=== PATIENT | male | born 1995 | race Caucasian/White ===

== ENCOUNTER 2021-05-13 23:04 | Inpatient (IN) | payer OTHER ==
[~2021-05-13] VITALS: Ht 172.7 cm; Wt 81.2 kg
[2021-05-13 23:39] LABS: GLUCOSE,POINT OF CARE 435 MG/DL (70-110)
[2021-05-13 23:39] LABS: EOSINOPHILS % (AUTO) 0 % (1.0-6.0); HEMATOCRIT 44.6 % (41-53); HEMOGLOBIN 15.2 g/dL (13.5-17.5); LYMPHOCYTES # (AUTO) 1.6 K/uL (1.0-4.8); LYMPHOCYTES % (AUTO) 12.3 % (22.0-44.0); MEAN CORPUSCULAR HEMOGLOBIN 29.7 pg (26.0-34.0); MEAN CORPUSCULAR HGB CONC 34.2 G/dL (31.0-37.0); MEAN CORPUSCULAR VOLUME 87 fL (80-100); MONOCYTES # (AUTO) 0.5 K/uL (0.1-1.0); MONOCYTES % (AUTO) 4.1 % (2.0-9.0); NEUTROPHILS # (AUTO) 10.6 K/uL (1.8-7.7); NEUTROPHILS % (AUTO) 82.6 % (40.0-70.0); PLATELET COUNT (AUTO) 355 K/uL (150-450); RED BLOOD CELL COUNT(AUTO) 5.13 MIL/uL (4.50-5.90)
[2021-05-13] MEDS ORDERED: INSU100V37 SQ (23:43)
[2021-05-13] MEDS ORDERED: INSULIN REGULAR, HUMAN 100 UNITS/ML IVP ONE (23:45)
[2021-05-13] MEDS ORDERED: SODIUM CHLORIDE 0.9% 1,000 ML IV ONE (23:45)
[2021-05-13 23:57] LABS: ALANINE AMINOTRANSFERASE 62 U/L (12-78); ALBUMIN 4.9 g/dL (3.4-5.0); ALKALINE PHOSPHATASE 203 U/L (46-116); ANION GAP 15 mmol/L (8-16); ASPARTATE AMINOTRANSFERASE 41 U/L (15-37); BILIRUBIN,TOTAL 0.2 mg/dL (0.1-1.0); CALCIUM, TOTAL 8.7 mg/dL (8.8-10.5); CARBON DIOXIDE 23 mmol/L (22-29); CHLORIDE 99 mmol/L (98-107); GLOMERULAR FILTR. RATE CALC > 60 mL/min (>60); POTASSIUM 5.3 mmol/L (3.5-5.1); SODIUM SERUM 137 mmol/L (136-145); TOTAL PROTEIN, SERUM 8.4 g/dL (6.4-8.2); UREA NITROGEN, BLOOD 9 mg/dL (7-18)
[2021-05-14] VITALS (13 sets, daily range): BP systolic 103–146; BP diastolic 62–86
[2021-05-14 00:05] LABS: COVID AG,FIA SOURCE NASOPHARYNGEAL
[2021-05-14 00:14] LABS: GLUCOSE,RANDOM 423 mg/dL (70-110)
[2021-05-14 00:15] LABS: LACTIC ACID 2.5 mmol/L (0.4-2.0)
[2021-05-14 01:18] LABS: GLUCOSE,POINT OF CARE 176 MG/DL (70-110)
[2021-05-14 02:17] LABS: LACTIC ACID 1.9 mmol/L (0.4-2.0)
[2021-05-14 02:20] LABS: ANION GAP 13 mmol/L (8-16); CALCIUM, TOTAL 8.9 mg/dL (8.8-10.5); CARBON DIOXIDE 24 mmol/L (22-29); CHLORIDE 105 mmol/L (98-107); CREATININE 0.93 mg/dL (0.60-1.30); GLOMERULAR FILTR. RATE CALC > 60 mL/min (>60); GLUCOSE,RANDOM 216 mg/dL (70-110); POTASSIUM 4.5 mmol/L (3.5-5.1); SODIUM SERUM 142 mmol/L (136-145); UREA NITROGEN, BLOOD 11 mg/dL (7-18)
[2021-05-14 04:47] LABS: GLUCOMETER DEV NAME(LOC) BV2S.; GLUCOSE,POINT OF CARE 267 MG/DL (70-110)
[2021-05-14] MEDS ORDERED: INFLUENZA VIRUS VACCINE QVS 2021-22 (6MO+)/PF 60 MCG/0.5 ML SYRINGE IM. ONE (05:30)
[2021-05-14] MEDS ORDERED: DOCUSATE SODIUM 100 MG CAPSULE PO PRN (06:30)
[2021-05-14] MEDS ORDERED: PETROLATUM,WHITE 28 GM JELLY TP PRN (06:30)
[2021-05-14] MEDS ORDERED: BENZOCAINE/MENTHOL LOZENGE PO PRN (06:30)
[2021-05-14] MEDS ORDERED: DEXTROSE 50%-WATER 25 GM/50 ML SYRINGE IVP PRN (06:30)
[2021-05-14] MEDS ORDERED: MAG HYDROX/AL HYDROX/SIMETH ES 30 ML SUSPENSION UDCUP PO PRN (06:30)
[2021-05-14] MEDS ORDERED: LOPERAMIDE HCL 2 MG CAPSULE PO PRN (06:30)
[2021-05-14] MEDS ORDERED: ACETAMINOPHEN 325 MG TABLET PO PRN (06:30)
[2021-05-14] MEDS ORDERED: IBUPROFEN 600 MG TABLET PO PRN (06:30)
[2021-05-14] MEDS ORDERED: MAGNESIUM HYDROXIDE SUSPENSION 30 ML UDCUP PO PRN (06:30)
[2021-05-14] MEDS ORDERED: CloNIDine HCL 0.1 MG TABLET PO PRN (06:30)
[2021-05-14] MEDS ORDERED: OMEPRAZOLE 20 MG CAPSULE PO PRN (06:30)
[2021-05-14] MEDS ORDERED: ALBUTEROL SULFATE HFA 90 MCG/PUFF 8 GM INHALER IH PRN (06:30)
[2021-05-14] MEDS ORDERED: BACITRACIN 28 GM OINTMENT TP PRN (06:30)
[2021-05-14] MEDS: INSULIN LISPRO 100 UNITS/ML SQ PRN ×4 (06:49→20:53)
[2021-05-14] MEDS: LORazepam 2 MG TABLET PO PRN ×2 (08:24→14:54)
[2021-05-14] MEDS: HALOPERIDOL 5 MG TABLET PO PRN ×2 (08:46→14:54)
[2021-05-14 11:35] LABS: GLUCOMETER DEV NAME(LOC) BV2S.; GLUCOSE,POINT OF CARE 212 MG/DL (70-110)
[2021-05-14 19:47] LABS: GLUCOMETER DEV NAME(LOC) BV2S.; GLUCOSE,POINT OF CARE 187 MG/DL (70-110)
[2021-05-14] MEDS: INSULIN GLARGINE,HUM.REC.ANLOG 100 UNITS/ML SQ SCH (20:53)
[2021-05-14] MEDS: ZOLPIDEM TARTRATE 10 MG TABLET PO PRN (20:56)
[2021-05-14 21:05] LABS: GLUCOMETER DEV NAME(LOC) BV2S.; GLUCOSE,POINT OF CARE 124 MG/DL (70-110)
[2021-05-15 01:37] VITALS: BP 125/68
[2021-05-15 02:59] VITALS: BP 125/68
[2021-05-15 06:31] VITALS: BP 125/78
[2021-05-15] MEDS: INSULIN LISPRO 100 UNITS/ML SQ PRN ×3 (06:45→20:41)
[2021-05-15 06:46] LABS: GLUCOMETER DEV NAME(LOC) BV2S.; GLUCOSE,POINT OF CARE 221 MG/DL (70-110)
[2021-05-15] MEDS: LORazepam 2 MG TABLET PO PRN ×2 (08:08→14:50)
[2021-05-15 08:47] VITALS: BP 120/71
[2021-05-15 09:25] LABS: CHOL/HDL RATIO 3.2 (4.2-7.3)
[2021-05-15] MEDS: HALOPERIDOL 5 MG TABLET PO PRN (09:42)
[2021-05-15 12:13] LABS: GLUCOMETER DEV NAME(LOC) BV2S.; GLUCOSE,POINT OF CARE 108 MG/DL (70-110)
[2021-05-15 16:27] VITALS: BP 120/72
[2021-05-15 16:42] LABS: GLUCOMETER DEV NAME(LOC) BV2S.; GLUCOSE,POINT OF CARE 365 MG/DL (70-110)
[2021-05-15] MEDS: ZOLPIDEM TARTRATE 10 MG TABLET PO PRN (20:38)
[2021-05-15] MEDS: INSULIN GLARGINE,HUM.REC.ANLOG 100 UNITS/ML SQ SCH (20:41)
[2021-05-15 23:28] LABS: GLUCOMETER DEV NAME(LOC) BV2S.; GLUCOSE,POINT OF CARE 285 MG/DL (70-110)
[2021-05-16] MEDS: LORazepam 2 MG TABLET PO PRN ×4 (00:40→18:32)
[2021-05-16 03:07] VITALS: BP 126/81
[2021-05-16] MEDS: INSULIN LISPRO 100 UNITS/ML SQ PRN ×4 (06:28→21:18)
[2021-05-16 06:32] LABS: GLUCOMETER DEV NAME(LOC) BV2S.; GLUCOSE,POINT OF CARE 164 MG/DL (70-110)
[2021-05-16 08:30] VITALS: BP 144/84
[2021-05-16 11:25] LABS: GLUCOMETER DEV NAME(LOC) BV2S.; GLUCOSE,POINT OF CARE 261 MG/DL (70-110)
[2021-05-16 15:23] VITALS: BP 132/89
[2021-05-16 16:11] VITALS: BP 132/89
[2021-05-16] MEDS: HALOPERIDOL 5 MG TABLET PO PRN (16:17)
[2021-05-16 16:31] LABS: GLUCOMETER DEV NAME(LOC) BV2S.; GLUCOSE,POINT OF CARE 280 MG/DL (70-110)
[2021-05-16] MEDS ORDERED: QUEtiapine FUMARATE 300 MG TABLET PO SCH (21:00)
[2021-05-16] MEDS: OXcarbazepine 300 MG TABLET PO SCH (21:07)
[2021-05-16] MEDS: INSULIN GLARGINE,HUM.REC.ANLOG 100 UNITS/ML SQ SCH (21:18)
[2021-05-16 21:24] LABS: GLUCOMETER DEV NAME(LOC) BV2S.; GLUCOSE,POINT OF CARE 344 MG/DL (70-110)
[2021-05-17 06:03] VITALS: BP 132/84
[2021-05-17] MEDS: INSULIN LISPRO 100 UNITS/ML SQ PRN (06:20)
[2021-05-17 06:27] LABS: GLUCOMETER DEV NAME(LOC) BV2S.; GLUCOSE,POINT OF CARE 213 MG/DL (70-110)
[2021-05-17] MEDS ORDERED: QUET300T2 PO (07:58)
[2021-05-17] MEDS ORDERED: INSLAN SQ (07:59)
[2021-05-17] MEDS ORDERED: OXCA300T57 PO (07:59)
[2021-05-17 08:15] VITALS: BP 107/66
[2021-05-17] MEDS: OXcarbazepine 300 MG TABLET PO SCH (09:07)
== END 2021-05-17 11:29 | disposition home or self-care (01) | DRG 885 ==
LOC: EMS 23:04 → B2S 05-14 02:00
PROVIDERS: ADMIT Psychiatry & Neurology Psychiatry; ATTEND Psychiatry & Neurology Psychiatry
DX: F25.9 Schizoaffective disorder, unspecified (principal); E10.65 Type 1 diabetes mellitus with hyperglycemia; E87.2 Acidosis; D72.829 Elevated white blood cell count, unspecified; F10.129 Alcohol abuse with intoxication, unspecified; F32.9 Major depressive disorder, single episode, unspecified; Z20.822 Contact with and (suspected) exposure to COVID-19; F41.9 Anxiety disorder, unspecified; G47.00 Insomnia, unspecified; K59.00 Constipation, unspecified; S61.511A Laceration without foreign body of right wrist, initial encounter; S61.512A Laceration without foreign body of left wrist, initial encounter; X78.9XXA Intentional self-harm by unspecified sharp object, initial encounter; Y92.89 Other specified places as the place of occurrence of the external cause; Z79.4 Long term (current) use of insulin; Z23 Encounter for immunization
CPT/HCPCS: 80048; 80053; 80061; 82962; 83605; 85025; 87081; 90686; 99285; G0480; J1815; J7030

== ENCOUNTER 2022-07-26 13:27 | Inpatient (IN) | payer MEDICAID, OTHER ==
[~2022-07-26] VITALS: Ht 167.6 cm; Wt 91.7 kg
[~2022-07-26 13:27] MED LIST: INSLAN SQ; OXCA300T57 PO; QUET300T2 PO
[2022-07-26] MEDS ORDERED: PERTUSS(ACELL),DIPH,TET VAC/PF 0.5 ML SYRINGE IM. ONE (15:15)
[2022-07-26 15:57] LABS: BASOPHILS % (AUTO) 0.5 % (0.0-2.0); EOSINOPHILS % (AUTO) 1.3 % (1.0-6.0); HEMATOCRIT 42.2 % (41-53); HEMOGLOBIN 14.1 g/dL (13.5-17.5); LYMPHOCYTES # (AUTO) 1.7 K/uL (1.0-4.8); MEAN CORPUSCULAR HEMOGLOBIN 29.1 pg (26.0-34.0); MEAN CORPUSCULAR HGB CONC 33.4 G/dL (31.0-37.0); MEAN CORPUSCULAR VOLUME 87 fL (80-100); NEUTROPHILS # (AUTO) 9.2 K/uL (1.8-7.7); NEUTROPHILS % (AUTO) 76.2 % (40.0-70.0); PLATELET COUNT (AUTO) 316 K/uL (150-450); RED BLOOD CELL COUNT(AUTO) 4.85 MIL/uL (4.50-5.90); RED CELL DISTRIBUTION WIDTH 13.8 % (11.5-14.5)
[2022-07-26 15:57] LABS: COVID AG,FIA SOURCE NASOPHARYNGEAL
[2022-07-26 16:09] LABS: ANION GAP 10 mmol/L (8-16); CALCIUM, TOTAL 9.5 mg/dL (8.8-10.5); CARBON DIOXIDE 27 mmol/L (22-29); CHLORIDE 105 mmol/L (98-107); CREATININE 1.01 mg/dL (0.60-1.30); GLOMERULAR FILTR. RATE CALC > 60 mL/min (>60); GLUCOSE,RANDOM 59 mg/dL (70-110); POTASSIUM 3.6 mmol/L (3.5-5.1); SODIUM SERUM 142 mmol/L (136-145); UREA NITROGEN, BLOOD 17 mg/dL (7-18)
[2022-07-26 16:16] LABS: ALANINE AMINOTRANSFERASE 39 U/L (12-78); ALBUMIN 4.2 g/dL (3.4-5.0); ALKALINE PHOSPHATASE 99 U/L (46-116); ASPARTATE AMINOTRANSFERASE 31 U/L (15-37); BILIRUBIN,TOTAL 0.4 mg/dL (0.1-1.0)
[2022-07-26] MEDS ORDERED: ACETAMINOPHEN 500 MG TABLET PO ONE (19:30)
[2022-07-26 22:20] LABS: GLUCOMETER DEV NAME(LOC) 3E.C; GLUCOSE,POINT OF CARE 182 MG/DL (70-110)
[2022-07-26 22:40] VITALS: BP 150/93
[2022-07-26 22:56] VITALS: BP 150/93
[2022-07-27] MEDS ORDERED: MAG HYDROX/AL HYDROX/SIMETH ES 30 ML SUSPENSION UDCUP PO PRN (07:15)
[2022-07-27] MEDS ORDERED: DOCUSATE SODIUM 100 MG CAPSULE PO PRN (07:15)
[2022-07-27] MEDS ORDERED: CloNIDine HCL 0.1 MG TABLET PO PRN (07:15)
[2022-07-27] MEDS ORDERED: ONDANSETRON HCL 4 MG TABLET PO PRN (07:15)
[2022-07-27] MEDS ORDERED: PETROLATUM,WHITE 28 GM JELLY TP PRN (07:15)
[2022-07-27] MEDS ORDERED: LOPERAMIDE HCL 2 MG CAPSULE PO PRN (07:15)
[2022-07-27] MEDS ORDERED: BENZOCAINE/MENTHOL LOZENGE PO PRN (07:15)
[2022-07-27] MEDS ORDERED: DEXTROSE 50%-WATER 25 GM/50 ML SYRINGE IVP PRN (07:15)
[2022-07-27] MEDS ORDERED: BACITRACIN 28 GM OINTMENT TP PRN (07:15)
[2022-07-27] MEDS ORDERED: OMEPRAZOLE 20 MG CAPSULE PO PRN (07:15)
[2022-07-27] MEDS ORDERED: MAGNESIUM HYDROXIDE SUSPENSION 30 ML UDCUP PO PRN (07:15)
[2022-07-27 08:38] VITALS: BP 154/93
[2022-07-27] MEDS: LISINOPRIL 10 MG TABLET PO SCH (09:27)
[2022-07-27] MEDS: LORazepam 2 MG TABLET PO PRN (10:37)
[2022-07-27] MEDS: IBUPROFEN 600 MG TABLET PO PRN (10:37)
[2022-07-27 10:38] VITALS: BP 152/85
[2022-07-27 11:28] LABS: APPEARANCE,URINE CLEAR (CLEAR); BILIRUBIN,URINE NEGATIVE (NEGATIVE); GLUCOSE, URINE (UA) NEGATIVE (NEGATIVE); LEUKOCYTE ESTERASE ,URINE NEGATIVE (NEGATIVE); NITRATE,URINE NEGATIVE (NEGATIVE); OCCULT BLOOD,URINE NEGATIVE (NEGATIVE); PH,URINE 5.5 (5.0-8.0); PROTEIN,URINE TRACE mg/dL (NEGATIVE); UROBILINOGEN,URINE <=1.0 mg/dL (<=1.0)
[2022-07-27 11:37] VITALS: BP 141/85
[2022-07-27 11:51] LABS: GLUCOMETER DEV NAME(LOC) 3E.C; GLUCOSE,POINT OF CARE 234 MG/DL (70-110)
[2022-07-27] MEDS: INSULIN LISPRO 100 UNITS/ML SQ PRN ×2 (11:57→17:26)
[2022-07-27 11:58] LABS: AMPHET/METH SCREEN,URINE NEGATIVE (NEGATIVE); BARBITURATE SCREEN, URINE NEGATIVE (NEGATIVE); BENZODIAZEPINES SCREEN,URINE NEGATIVE (NEGATIVE); CANNABINOID SCREEN,URINE NEGATIVE (NEGATIVE); COCAINE SCREEN,URINE NEGATIVE (NEGATIVE); METHADONE SCREEN, URINE NEGATIVE (NEGATIVE); OPIATE SCREEN,URINE NEGATIVE (NEGATIVE)
[2022-07-27 12:02] LABS: PHENCYCLIDINE SCREEN,URINE NEGATIVE (NEGATIVE)
[2022-07-27 16:36] LABS: GLUCOMETER DEV NAME(LOC) 3E.C; GLUCOSE,POINT OF CARE 338 MG/DL (70-110)
[2022-07-27 16:57] VITALS: BP 137/65
[2022-07-27 20:41] LABS: GLUCOMETER DEV NAME(LOC) 3E.C; GLUCOSE,POINT OF CARE 129 MG/DL (70-110)
[2022-07-27] MEDS: ZOLPIDEM TARTRATE 10 MG TABLET PO PRN (21:08)
[2022-07-27] MEDS: INSULIN GLARGINE,HUM.REC.ANLOG 100 UNITS/ML SQ SCH (21:10)
[2022-07-28 06:41] LABS: GLUCOMETER DEV NAME(LOC) 3E.C; GLUCOSE,POINT OF CARE 90 MG/DL (70-110)
[2022-07-28 08:15] VITALS: BP 131/62
[2022-07-28] MEDS: LISINOPRIL 10 MG TABLET PO SCH (08:26)
[2022-07-28 09:01] VITALS: BP 134/65
[2022-07-28] MEDS: IBUPROFEN 600 MG TABLET PO PRN ×2 (09:01→15:40)
[2022-07-28 09:41] LABS: GLUCOMETER DEV NAME(LOC) 3E.C; GLUCOSE,POINT OF CARE 304 MG/DL (70-110)
[2022-07-28] MEDS: INSULIN LISPRO 100 UNITS/ML SQ PRN ×3 (12:20→21:02)
[2022-07-28 15:40] VITALS: BP 129/65
[2022-07-28] MEDS: DIVALPROEX SODIUM 500 MG DR TABLET PO SCH (16:37)
[2022-07-28] MEDS: LITHIUM CARBONATE 300 MG CAPSULE PO SCH (16:37)
[2022-07-28] MEDS: RisperiDONE 3 MG TABLET PO SCH (16:37)
[2022-07-28 17:16] LABS: GLUCOMETER DEV NAME(LOC) 3E.C; GLUCOSE,POINT OF CARE 350 MG/DL (70-110)
[2022-07-28 17:16] LABS: GLUCOMETER DEV NAME(LOC) 3E.C; GLUCOSE,POINT OF CARE 341 MG/DL (70-110)
[2022-07-28 17:52] VITALS: BP 130/74
[2022-07-28 20:31] LABS: GLUCOMETER DEV NAME(LOC) 3E.C; GLUCOSE,POINT OF CARE 321 MG/DL (70-110)
[2022-07-28] MEDS: INSULIN GLARGINE,HUM.REC.ANLOG 100 UNITS/ML SQ SCH (21:01)
[2022-07-29 06:30] VITALS: BP 112/66
[2022-07-29] MEDS: IBUPROFEN 600 MG TABLET PO PRN (06:30)
[2022-07-29 06:41] LABS: GLUCOMETER DEV NAME(LOC) 3E.C; GLUCOSE,POINT OF CARE 282 MG/DL (70-110)
[2022-07-29] MEDS: INSULIN LISPRO 100 UNITS/ML SQ PRN ×4 (07:05→21:09)
[2022-07-29] MEDS: RisperiDONE 3 MG TABLET PO SCH ×2 (08:51→16:39)
[2022-07-29] MEDS: LITHIUM CARBONATE 300 MG CAPSULE PO SCH ×2 (08:51→16:40)
[2022-07-29] MEDS: LISINOPRIL 10 MG TABLET PO SCH (08:51)
[2022-07-29] MEDS: DIVALPROEX SODIUM 500 MG DR TABLET PO SCH ×2 (08:52→16:39)
[2022-07-29 09:00] VITALS: BP 116/70
[2022-07-29 12:16] LABS: GLUCOMETER DEV NAME(LOC) 3E.C; GLUCOSE,POINT OF CARE 209 MG/DL (70-110)
[2022-07-29 16:17] VITALS: BP 117/56
[2022-07-29 16:51] LABS: GLUCOMETER DEV NAME(LOC) 3E.C; GLUCOSE,POINT OF CARE 326 MG/DL (70-110)
[2022-07-29 20:36] LABS: GLUCOMETER DEV NAME(LOC) 3E.C; GLUCOSE,POINT OF CARE 296 MG/DL (70-110)
[2022-07-29] MEDS: LORazepam 2 MG TABLET PO PRN (21:08)
[2022-07-29] MEDS: INSULIN GLARGINE,HUM.REC.ANLOG 100 UNITS/ML SQ SCH (21:18)
[2022-07-29] MEDS: ZOLPIDEM TARTRATE 10 MG TABLET PO PRN (22:24)
[2022-07-30 08:00] VITALS: BP 122/58
[2022-07-30] MEDS: RisperiDONE 3 MG TABLET PO SCH ×2 (08:28→16:23)
[2022-07-30] MEDS: DIVALPROEX SODIUM 500 MG DR TABLET PO SCH ×2 (08:28→16:23)
[2022-07-30] MEDS: LITHIUM CARBONATE 300 MG CAPSULE PO SCH ×2 (08:28→16:23)
[2022-07-30] MEDS: LISINOPRIL 10 MG TABLET PO SCH (08:28)
[2022-07-30 11:06] LABS: GLUCOMETER DEV NAME(LOC) 3E.C; GLUCOSE,POINT OF CARE 132 MG/DL (70-110)
[2022-07-30 11:06] LABS: GLUCOMETER DEV NAME(LOC) 3E.C; GLUCOSE,POINT OF CARE 387 MG/DL (70-110)
[2022-07-30] MEDS: INSULIN LISPRO 100 UNITS/ML SQ PRN ×3 (11:58→21:05)
[2022-07-30 16:15] VITALS: BP 132/73
[2022-07-30 16:35] LABS: GLUCOMETER DEV NAME(LOC) 3E.C; GLUCOSE,POINT OF CARE 207 MG/DL (70-110)
[2022-07-30 20:31] LABS: GLUCOMETER DEV NAME(LOC) 3E.C; GLUCOSE,POINT OF CARE 202 MG/DL (70-110)
[2022-07-30] MEDS: INSULIN GLARGINE,HUM.REC.ANLOG 100 UNITS/ML SQ SCH (21:04)
[2022-07-31] MEDS: IBUPROFEN 600 MG TABLET PO PRN ×2 (04:15→13:56)
[2022-07-31 05:36] LABS: GLUCOMETER DEV NAME(LOC) 3E.C; GLUCOSE,POINT OF CARE 127 MG/DL (70-110)
[2022-07-31 08:26] VITALS: BP 135/73
[2022-07-31] MEDS: LISINOPRIL 10 MG TABLET PO SCH (08:33)
[2022-07-31] MEDS: DIVALPROEX SODIUM 500 MG DR TABLET PO SCH ×2 (08:33→16:11)
[2022-07-31] MEDS: LITHIUM CARBONATE 300 MG CAPSULE PO SCH ×2 (08:34→16:11)
[2022-07-31] MEDS: RisperiDONE 3 MG TABLET PO SCH ×2 (08:34→16:11)
[2022-07-31 11:51] LABS: GLUCOMETER DEV NAME(LOC) 3E.C; GLUCOSE,POINT OF CARE 454 MG/DL (70-110)
[2022-07-31] MEDS ORDERED: DEXTROSE 50%-WATER 25 GM/50 ML SYRINGE IVP PRN (12:00)
[2022-07-31] MEDS ORDERED: INSULIN LISPRO 100 UNITS/ML SQ ONE (12:00)
[2022-07-31 13:57] VITALS: BP 132/73
[2022-07-31 14:59] VITALS: BP 115/70
[2022-07-31 16:18] VITALS: BP 118/77
[2022-07-31 17:41] LABS: GLUCOMETER DEV NAME(LOC) 3E.C; GLUCOSE,POINT OF CARE 140 MG/DL (70-110)
[2022-07-31] MEDS: INSULIN LISPRO 100 UNITS/ML SQ PRN ×2 (17:41→20:17)
[2022-07-31] MEDS: INSULIN GLARGINE,HUM.REC.ANLOG 100 UNITS/ML SQ SCH (20:16)
[2022-07-31 20:22] LABS: GLUCOMETER DEV NAME(LOC) 3E.C; GLUCOSE,POINT OF CARE 140 MG/DL (70-110)
[2022-08-01 02:32] VITALS: BP 122/80
[2022-08-01] MEDS: IBUPROFEN 600 MG TABLET PO PRN (02:32)
[2022-08-01 02:55] LABS: COVID AG,FIA SOURCE NASAL SWAB
[2022-08-01 05:51] LABS: GLUCOMETER DEV NAME(LOC) 3E.C; GLUCOSE,POINT OF CARE 204 MG/DL (70-110)
[2022-08-01] MEDS: INSULIN LISPRO 100 UNITS/ML SQ PRN ×5 (06:33→21:10)
[2022-08-01 08:00] VITALS: BP 123/62
[2022-08-01] MEDS: DIVALPROEX SODIUM 500 MG DR TABLET PO SCH ×2 (08:23→16:37)
[2022-08-01] MEDS: LITHIUM CARBONATE 300 MG CAPSULE PO SCH ×2 (08:23→16:37)
[2022-08-01] MEDS: LISINOPRIL 10 MG TABLET PO SCH (08:24)
[2022-08-01] MEDS: RisperiDONE 3 MG TABLET PO SCH ×2 (08:24→16:37)
[2022-08-01 11:52] LABS: GLUCOMETER DEV NAME(LOC) 3E.C; GLUCOSE,POINT OF CARE 176 MG/DL (70-110)
[2022-08-01 16:00] VITALS: BP 140/81
[2022-08-01 16:51] LABS: GLUCOMETER DEV NAME(LOC) 3E.C; GLUCOSE,POINT OF CARE 251 MG/DL (70-110)
[2022-08-01 20:56] LABS: GLUCOMETER DEV NAME(LOC) 3E.C; GLUCOSE,POINT OF CARE 328 MG/DL (70-110)
[2022-08-01] MEDS: INSULIN GLARGINE,HUM.REC.ANLOG 100 UNITS/ML SQ SCH (21:08)
[2022-08-02 02:10] VITALS: BP 112/66
[2022-08-02] MEDS: IBUPROFEN 600 MG TABLET PO PRN (02:15)
[2022-08-02] MEDS: HALOPERIDOL 5 MG TABLET PO PRN (04:05)
[2022-08-02] MEDS: LORazepam 2 MG TABLET PO PRN (04:06)
[2022-08-02] MEDS: INSULIN LISPRO 100 UNITS/ML SQ PRN ×4 (06:32→20:24)
[2022-08-02 06:55] LABS: GLUCOMETER DEV NAME(LOC) 3E.C; GLUCOSE,POINT OF CARE 84 MG/DL (70-110)
[2022-08-02 09:08] LABS: LITHIUM 0.51 mmol/L (0.60-1.20)
[2022-08-02 10:18] VITALS: BP 127/81
[2022-08-02] MEDS: RisperiDONE 3 MG TABLET PO SCH ×2 (11:08→18:01)
[2022-08-02] MEDS: LITHIUM CARBONATE 300 MG CAPSULE PO SCH ×2 (11:08→18:01)
[2022-08-02] MEDS: DIVALPROEX SODIUM 500 MG DR TABLET PO SCH ×2 (11:08→18:01)
[2022-08-02] MEDS: LISINOPRIL 10 MG TABLET PO SCH (11:08)
[2022-08-02 13:06] LABS: GLUCOMETER DEV NAME(LOC) 3E.C; GLUCOSE,POINT OF CARE 461 MG/DL (70-110)
[2022-08-02] MEDS ORDERED: INSULIN LISPRO 100 UNITS/ML SQ ONE (13:30)
[2022-08-02 16:33] VITALS: BP 114/60
[2022-08-02 18:20] LABS: GLUCOMETER DEV NAME(LOC) 3E.C; GLUCOSE,POINT OF CARE 138 MG/DL (70-110)
[2022-08-02] MEDS: INSULIN GLARGINE,HUM.REC.ANLOG 100 UNITS/ML SQ SCH (20:23)
[2022-08-02 20:36] LABS: GLUCOMETER DEV NAME(LOC) 3E.C; GLUCOSE,POINT OF CARE 261 MG/DL (70-110)
[2022-08-03 06:12] VITALS: BP 129/86
[2022-08-03] MEDS: IBUPROFEN 600 MG TABLET PO PRN (06:12)
[2022-08-03] MEDS: LORazepam 2 MG TABLET PO PRN ×2 (06:12→09:10)
[2022-08-03 06:31] LABS: GLUCOMETER DEV NAME(LOC) 3E.C; GLUCOSE,POINT OF CARE 365 MG/DL (70-110)
[2022-08-03] MEDS: INSULIN LISPRO 100 UNITS/ML SQ PRN ×3 (06:33→21:29)
[2022-08-03 08:24] VITALS: BP 111/67
[2022-08-03] MEDS: DIVALPROEX SODIUM 500 MG DR TABLET PO SCH ×2 (09:10→17:10)
[2022-08-03] MEDS: LITHIUM CARBONATE 300 MG CAPSULE PO SCH ×2 (09:10→17:11)
[2022-08-03] MEDS: LISINOPRIL 10 MG TABLET PO SCH (09:10)
[2022-08-03] MEDS: HALOPERIDOL 5 MG TABLET PO PRN (09:10)
[2022-08-03] MEDS: RisperiDONE 3 MG TABLET PO SCH ×2 (09:10→17:11)
[2022-08-03 09:11] VITALS: BP 117/67
[2022-08-03] MEDS: ACETAMINOPHEN 325 MG TABLET PO PRN (09:11)
[2022-08-03 10:11] VITALS: BP 108/62
[2022-08-03 12:06] LABS: GLUCOMETER DEV NAME(LOC) 3E.C; GLUCOSE,POINT OF CARE 311 MG/DL (70-110)
[2022-08-03] MEDS ORDERED: INSULIN LISPRO 100 UNITS/ML SQ ONE (17:30)
[2022-08-03 17:31] LABS: GLUCOMETER DEV NAME(LOC) 3E.C; GLUCOSE,POINT OF CARE 530 MG/DL (70-110)
[2022-08-03 17:41] LABS: GLUCOMETER DEV NAME(LOC) 3E.C; GLUCOSE,POINT OF CARE 540 MG/DL (70-110)
[2022-08-03 18:30] VITALS: BP 108/56
[2022-08-03 18:38] VITALS: BP 128/69
[2022-08-03 18:51] LABS: GLUCOMETER DEV NAME(LOC) 3E.C; GLUCOSE,POINT OF CARE 554 MG/DL (70-110)
[2022-08-03 21:27] LABS: GLUCOMETER DEV NAME(LOC) 3E.C; GLUCOSE,POINT OF CARE 266 MG/DL (70-110)
[2022-08-03] MEDS: INSULIN GLARGINE,HUM.REC.ANLOG 100 UNITS/ML SQ SCH (21:28)
[2022-08-04] MEDS: INSULIN LISPRO 100 UNITS/ML SQ SCH ×3 (06:25→17:17)
[2022-08-04] MEDS: INSULIN LISPRO 100 UNITS/ML SQ PRN ×4 (06:27→21:02)
[2022-08-04 06:31] LABS: GLUCOMETER DEV NAME(LOC) 3E.C; GLUCOSE,POINT OF CARE 215 MG/DL (70-110)
[2022-08-04 08:18] VITALS: BP 99/61
[2022-08-04] MEDS: LITHIUM CARBONATE 300 MG CAPSULE PO SCH ×2 (09:26→17:16)
[2022-08-04] MEDS: DIVALPROEX SODIUM 500 MG DR TABLET PO SCH ×2 (09:26→17:16)
[2022-08-04] MEDS: LISINOPRIL 10 MG TABLET PO SCH (09:26)
[2022-08-04] MEDS: RisperiDONE 3 MG TABLET PO SCH ×2 (09:26→17:16)
[2022-08-04] MEDS: MULTIVITAMINS WITH MINERALS, THERAPEUTIC TABLET PO SCH (09:26)
[2022-08-04 10:56] LABS: GLUCOMETER DEV NAME(LOC) 3E.C; GLUCOSE,POINT OF CARE 269 MG/DL (70-110)
[2022-08-04] MEDS: ALBUTEROL SULFATE HFA 90 MCG/PUFF 8 GM INHALER IH PRN (11:48)
[2022-08-04 11:57] LABS: GLUCOMETER DEV NAME(LOC) 3E.C; GLUCOSE,POINT OF CARE 309 MG/DL (70-110)
[2022-08-04 16:07] VITALS: BP 127/64
[2022-08-04 17:10] LABS: GLUCOMETER DEV NAME(LOC) 3E.C; GLUCOSE,POINT OF CARE 206 MG/DL (70-110)
[2022-08-04 20:31] LABS: GLUCOMETER DEV NAME(LOC) 3E.C; GLUCOSE,POINT OF CARE 181 MG/DL (70-110)
[2022-08-04] MEDS: INSULIN GLARGINE,HUM.REC.ANLOG 100 UNITS/ML SQ SCH (20:59)
[2022-08-05] MEDS: ALBUTEROL SULFATE HFA 90 MCG/PUFF 8 GM INHALER IH PRN (04:40)
[2022-08-05 05:32] LABS: GLUCOMETER DEV NAME(LOC) 3E.C; GLUCOSE,POINT OF CARE 296 MG/DL (70-110)
[2022-08-05] MEDS: INSULIN LISPRO 100 UNITS/ML SQ SCH ×3 (06:58→16:42)
[2022-08-05] MEDS: INSULIN LISPRO 100 UNITS/ML SQ PRN ×4 (06:59→21:10)
[2022-08-05 08:14] VITALS: BP 100/62
[2022-08-05] MEDS: RisperiDONE 3 MG TABLET PO SCH ×2 (08:18→17:10)
[2022-08-05] MEDS: DIVALPROEX SODIUM 500 MG DR TABLET PO SCH ×2 (08:18→17:10)
[2022-08-05] MEDS: LITHIUM CARBONATE 300 MG CAPSULE PO SCH ×2 (08:18→17:10)
[2022-08-05] MEDS: MULTIVITAMINS WITH MINERALS, THERAPEUTIC TABLET PO SCH (08:19)
[2022-08-05] MEDS: LISINOPRIL 10 MG TABLET PO SCH (08:21)
[2022-08-05 11:21] LABS: GLUCOMETER DEV NAME(LOC) 3E.C; GLUCOSE,POINT OF CARE 230 MG/DL (70-110)
[2022-08-05] MEDS: IBUPROFEN 600 MG TABLET PO PRN (13:23)
[2022-08-05 16:05] VITALS: BP 118/60
[2022-08-05 16:56] LABS: GLUCOMETER DEV NAME(LOC) 3E.C; GLUCOSE,POINT OF CARE 581 MG/DL (70-110)
[2022-08-05 17:16] LABS: GLUCOMETER DEV NAME(LOC) 3E.C; GLUCOSE,POINT OF CARE 562 MG/DL (70-110)
[2022-08-05 17:36] LABS: GLUCOMETER DEV NAME(LOC) 3E.C; GLUCOSE,POINT OF CARE 584 MG/DL (70-110)
[2022-08-05 19:11] LABS: GLUCOMETER DEV NAME(LOC) 3E.C; GLUCOSE,POINT OF CARE 127 MG/DL (70-110)
[2022-08-05] MEDS: INSULIN GLARGINE,HUM.REC.ANLOG 100 UNITS/ML SQ SCH (21:00)
[2022-08-05] MEDS: LORazepam 2 MG TABLET PO PRN (21:09)
[2022-08-05] MEDS: HALOPERIDOL 5 MG TABLET PO PRN (21:09)
[2022-08-05 21:17] LABS: GLUCOMETER DEV NAME(LOC) 3E.C; GLUCOSE,POINT OF CARE 135 MG/DL (70-110)
[2022-08-06 06:11] LABS: GLUCOMETER DEV NAME(LOC) 3E.C; GLUCOSE,POINT OF CARE 288 MG/DL (70-110)
[2022-08-06] MEDS: INSULIN LISPRO 100 UNITS/ML SQ SCH ×3 (06:45→17:14)
[2022-08-06] MEDS: INSULIN LISPRO 100 UNITS/ML SQ PRN ×3 (06:46→20:09)
[2022-08-06] MEDS: DIVALPROEX SODIUM 500 MG DR TABLET PO SCH ×2 (08:05→16:21)
[2022-08-06] MEDS: MULTIVITAMINS WITH MINERALS, THERAPEUTIC TABLET PO SCH (08:05)
[2022-08-06] MEDS: RisperiDONE 3 MG TABLET PO SCH ×2 (08:05→16:21)
[2022-08-06] MEDS: LITHIUM CARBONATE 300 MG CAPSULE PO SCH ×2 (08:05→16:21)
[2022-08-06] MEDS: LISINOPRIL 10 MG TABLET PO SCH (08:05)
[2022-08-06 08:38] VITALS: BP 135/77
[2022-08-06 11:11] LABS: GLUCOMETER DEV NAME(LOC) 3E.C; GLUCOSE,POINT OF CARE 89 MG/DL (70-110)
[2022-08-06] MEDS: ACETAMINOPHEN 325 MG TABLET PO PRN (16:08)
[2022-08-06 16:09] VITALS: BP 150/83
[2022-08-06 16:16] LABS: GLUCOMETER DEV NAME(LOC) 3E.C; GLUCOSE,POINT OF CARE 365 MG/DL (70-110)
[2022-08-06 17:31] LABS: GLUCOMETER DEV NAME(LOC) 3E.C; GLUCOSE,POINT OF CARE 403 MG/DL (70-110)
[2022-08-06 19:01] LABS: GLUCOMETER DEV NAME(LOC) 3E.C; GLUCOSE,POINT OF CARE 455 MG/DL (70-110)
[2022-08-06] MEDS: INSULIN GLARGINE,HUM.REC.ANLOG 100 UNITS/ML SQ SCH (20:10)
[2022-08-06 20:17] LABS: GLUCOMETER DEV NAME(LOC) 3E.C; GLUCOSE,POINT OF CARE 334 MG/DL (70-110)
[2022-08-07 05:56] LABS: GLUCOMETER DEV NAME(LOC) 3E.C; GLUCOSE,POINT OF CARE 105 MG/DL (70-110)
[2022-08-07 06:34] VITALS: BP 142/76
[2022-08-07] MEDS: IBUPROFEN 600 MG TABLET PO PRN (06:34)
[2022-08-07] MEDS: INSULIN LISPRO 100 UNITS/ML SQ SCH ×3 (06:39→16:23)
[2022-08-07] MEDS: LITHIUM CARBONATE 300 MG CAPSULE PO SCH ×2 (08:02→16:02)
[2022-08-07] MEDS: MULTIVITAMINS WITH MINERALS, THERAPEUTIC TABLET PO SCH (08:02)
[2022-08-07] MEDS: LISINOPRIL 10 MG TABLET PO SCH (08:02)
[2022-08-07] MEDS: DIVALPROEX SODIUM 500 MG DR TABLET PO SCH ×2 (08:02→16:03)
[2022-08-07] MEDS: RisperiDONE 3 MG TABLET PO SCH ×2 (08:03→16:02)
[2022-08-07 08:13] VITALS: BP 132/71
[2022-08-07 11:11] LABS: GLUCOMETER DEV NAME(LOC) 3E.C; GLUCOSE,POINT OF CARE 151 MG/DL (70-110)
[2022-08-07] MEDS: ALBUTEROL SULFATE HFA 90 MCG/PUFF 8 GM INHALER IH PRN (11:26)
[2022-08-07] MEDS: HALOPERIDOL 5 MG TABLET PO PRN ×2 (11:27→20:58)
[2022-08-07 16:07] VITALS: BP 137/70
[2022-08-07 16:16] LABS: GLUCOMETER DEV NAME(LOC) 3E.C; GLUCOSE,POINT OF CARE 377 MG/DL (70-110)
[2022-08-07] MEDS: INSULIN LISPRO 100 UNITS/ML SQ PRN (16:23)
[2022-08-07] MEDS: INSULIN GLARGINE,HUM.REC.ANLOG 100 UNITS/ML SQ SCH (20:24)
[2022-08-07 20:25] LABS: GLUCOMETER DEV NAME(LOC) 3E.C; GLUCOSE,POINT OF CARE 91 MG/DL (70-110)
[2022-08-07] MEDS: LORazepam 2 MG TABLET PO PRN (20:58)
[2022-08-07] MEDS: ZOLPIDEM TARTRATE 10 MG TABLET PO PRN (22:15)
[2022-08-08 06:22] LABS: COVID AG,FIA SOURCE NASAL SWAB
[2022-08-08 06:26] LABS: GLUCOMETER DEV NAME(LOC) 3E.C; GLUCOSE,POINT OF CARE 312 MG/DL (70-110)
[2022-08-08] MEDS: INSULIN LISPRO 100 UNITS/ML SQ SCH ×3 (06:42→17:27)
[2022-08-08] MEDS: INSULIN LISPRO 100 UNITS/ML SQ PRN ×4 (06:43→20:49)
[2022-08-08 08:12] VITALS: BP 109/58
[2022-08-08] MEDS: LITHIUM CARBONATE 300 MG CAPSULE PO SCH ×2 (09:34→16:12)
[2022-08-08] MEDS: LISINOPRIL 10 MG TABLET PO SCH (09:34)
[2022-08-08] MEDS: MULTIVITAMINS WITH MINERALS, THERAPEUTIC TABLET PO SCH (09:34)
[2022-08-08] MEDS: RisperiDONE 3 MG TABLET PO SCH ×2 (09:34→16:12)
[2022-08-08] MEDS: DIVALPROEX SODIUM 500 MG DR TABLET PO SCH ×2 (09:34→16:12)
[2022-08-08] MEDS: HALOPERIDOL 5 MG TABLET PO PRN ×2 (11:10→16:12)
[2022-08-08 11:31] LABS: GLUCOMETER DEV NAME(LOC) 3E.C; GLUCOSE,POINT OF CARE 133 MG/DL (70-110)
[2022-08-08 16:06] VITALS: BP 114/61
[2022-08-08 17:36] LABS: GLUCOMETER DEV NAME(LOC) 3E.C; GLUCOSE,POINT OF CARE 445 MG/DL (70-110)
[2022-08-08] MEDS: INSULIN GLARGINE,HUM.REC.ANLOG 100 UNITS/ML SQ SCH (20:42)
[2022-08-08 20:46] LABS: GLUCOMETER DEV NAME(LOC) 3E.C; GLUCOSE,POINT OF CARE 179 MG/DL (70-110)
[2022-08-09 06:36] LABS: GLUCOMETER DEV NAME(LOC) 3E.C; GLUCOSE,POINT OF CARE 304 MG/DL (70-110)
[2022-08-09] MEDS: INSULIN LISPRO 100 UNITS/ML SQ SCH ×3 (06:53→17:00)
[2022-08-09] MEDS: INSULIN LISPRO 100 UNITS/ML SQ PRN ×2 (06:54→11:18)
[2022-08-09 07:11] LABS: FREE T4 (FREE THYROXINE) 0.93 ng/dL (0.76-1.46); THYROID STIMULATING HORMONE 3.78 uIU/mL (0.36-3.74)
[2022-08-09 08:12] VITALS: BP 109/61
[2022-08-09] MEDS: HALOPERIDOL 5 MG TABLET PO PRN (09:04)
[2022-08-09] MEDS: DIVALPROEX SODIUM 500 MG DR TABLET PO SCH ×2 (09:04→17:00)
[2022-08-09] MEDS: LITHIUM CARBONATE 300 MG CAPSULE PO SCH ×2 (09:04→17:00)
[2022-08-09] MEDS: RisperiDONE 3 MG TABLET PO SCH ×2 (09:04→17:00)
[2022-08-09] MEDS: MULTIVITAMINS WITH MINERALS, THERAPEUTIC TABLET PO SCH (09:05)
[2022-08-09] MEDS: LISINOPRIL 10 MG TABLET PO SCH (09:05)
[2022-08-09 11:26] LABS: GLUCOMETER DEV NAME(LOC) 3E.C; GLUCOSE,POINT OF CARE 130 MG/DL (70-110)
[2022-08-09] MEDS: ALBUTEROL SULFATE HFA 90 MCG/PUFF 8 GM INHALER IH PRN (11:27)
[2022-08-09] MEDS ORDERED: DIVA-112 PO (11:48)
[2022-08-09] MEDS ORDERED: LITH300C3 PO (11:48)
[2022-08-09] MEDS ORDERED: RISP3TAB63 PO (11:48)
[2022-08-09] MEDS ORDERED: INSLAN SQ (12:05)
[2022-08-09] MEDS ORDERED: INSU100V SQ (12:07)
[2022-08-09] MEDS ORDERED: LISI-661 PO (12:08)
== END 2022-08-09 14:30 | disposition home or self-care (01) | DRG 750 ==
LOC: EMS 14:03 → 3EC 18:11
PROVIDERS: ADMIT Psychiatry & Neurology Psychiatry; ATTEND Psychiatry & Neurology Psychiatry
DX: F25.9 Schizoaffective disorder, unspecified (principal); E11.9 Type 2 diabetes mellitus without complications; D72.829 Elevated white blood cell count, unspecified; F41.9 Anxiety disorder, unspecified; G47.00 Insomnia, unspecified; F32.A Depression, unspecified; I10 Essential (primary) hypertension; K59.00 Constipation, unspecified; X78.9XXA Intentional self-harm by unspecified sharp object, initial encounter; S61.412A Laceration without foreign body of left hand, initial encounter; S61.411A Laceration without foreign body of right hand, initial encounter; Z20.822 Contact with and (suspected) exposure to COVID-19; Z87.891 Personal history of nicotine dependence; Y93.89 Activity, other specified; Y92.89 Other specified places as the place of occurrence of the external cause; Y99.8 Other external cause status
CPT/HCPCS: 80053; 80164; 80178; 80307; 81003; 82962; 83036; 84439; 84443; 84481; 85025; 90715; 99285; G0480; J1815; J3535

== ENCOUNTER 2023-07-15 21:33 | Inpatient (IN) | payer MEDICAID ==
[~2023-07-15] VITALS: Ht 172.7 cm; Wt 90.7 kg
[~2023-07-15 21:33] MED LIST changes: +DIVA-112 PO; +INSU100C14 SQ; +LITH300C3 PO; -OXCA300T57 PO; -QUET300T2 PO; +RISP3TAB35 PO
[2023-07-15 22:04] LABS: BASOPHILS % (AUTO) 0.9 % (0.0-2.0); EOSINOPHILS % (AUTO) 1.9 % (1.0-6.0); HEMATOCRIT 42.5 % (41-53); HEMOGLOBIN 14.7 g/dL (13.5-17.5); LYMPHOCYTES # (AUTO) 2.5 K/uL (1.0-4.8); LYMPHOCYTES % (AUTO) 20.1 % (22.0-44.0); MEAN CORPUSCULAR HEMOGLOBIN 30.1 pg (26.0-34.0); MEAN CORPUSCULAR HGB CONC 34.7 G/dL (31.0-37.0); MEAN CORPUSCULAR VOLUME 87 fL (80-100); MONOCYTES # (AUTO) 1.1 K/uL (0.1-1.0); MONOCYTES % (AUTO) 8.6 % (2.0-9.0); NEUTROPHILS # (AUTO) 8.5 K/uL (1.8-7.7); NEUTROPHILS % (AUTO) 68.5 % (40.0-70.0); PLATELET COUNT (AUTO) 308 K/uL (150-450); RED CELL DISTRIBUTION WIDTH 12.9 % (11.5-14.5); WHITE BLOOD COUNT (AUTO) 12.5 K/uL (4.5-11.0)
[2023-07-15 22:23] LABS: ANION GAP 10 mmol/L (8-16); CALCIUM, TOTAL 9.2 mg/dL (8.8-10.5); CARBON DIOXIDE 24 mmol/L (22-29); CHLORIDE 106 mmol/L (98-107); CREATININE 0.85 mg/dL (0.60-1.30); GLOMERULAR FILTR. RATE CALC > 60 mL/min (>60); GLUCOSE,RANDOM 103 mg/dL (70-110); POTASSIUM 3.9 mmol/L (3.5-5.1); SODIUM SERUM 140 mmol/L (136-145); UREA NITROGEN, BLOOD 11 mg/dL (7-18)
[2023-07-15 22:29] LABS: ALANINE AMINOTRANSFERASE 37 U/L (12-78); ALKALINE PHOSPHATASE 157 U/L (46-116); ASPARTATE AMINOTRANSFERASE 20 U/L (15-37); BILIRUBIN,TOTAL 0.2 mg/dL (0.1-1.0)
[2023-07-15 22:34] LABS: ALCOHOL, BLOOD (SERUM) 87 mg/dL (0-10)
[2023-07-15 23:23] LABS: COVID AG,FIA SOURCE NASAL SWAB
[2023-07-15 23:33] LABS: ALCOHOL, URINE DRUG SCREEN POSITIVE (NEGATIVE); AMPHET/METH SCREEN,URINE NEGATIVE (NEGATIVE); BARBITURATE SCREEN, URINE NEGATIVE (NEGATIVE); BENZODIAZEPINES SCREEN,URINE NEGATIVE (NEGATIVE); CANNABINOID SCREEN,URINE POSITIVE (NEGATIVE); COCAINE SCREEN,URINE NEGATIVE (NEGATIVE); METHADONE SCREEN, URINE NEGATIVE (NEGATIVE); OPIATE SCREEN,URINE NEGATIVE (NEGATIVE); PHENCYCLIDINE SCREEN,URINE NEGATIVE (NEGATIVE)
[2023-07-15 23:41] LABS: SARS-COV2 (COVID) ANTIGEN,FIA Negative (Negative)
[2023-07-16 01:51] LABS: GLUCOMETER DEV NAME(LOC) BV3N.; GLUCOSE,POINT OF CARE 148 MG/DL (70-110)
[2023-07-16 01:59] VITALS: BP 115/70; PULSE 70; RESP 18; TEMP 97.8
[2023-07-16] MEDS: ZOLPIDEM TARTRATE 10 MG TABLET PO PRN (01:59)
[2023-07-16] MEDS: LORazepam 2 MG TABLET PO PRN (02:00)
[2023-07-16 02:02] VITALS: BP 115/70; PULSE 70; RESP 18; TEMP 98.7; O2SAT 100
[2023-07-16] MEDS ORDERED: DOCUSATE SODIUM 100 MG CAPSULE PO PRN (07:45)
[2023-07-16] MEDS ORDERED: MAGNESIUM HYDROXIDE SUSPENSION 30 ML UDCUP PO PRN (07:45)
[2023-07-16] MEDS ORDERED: PETROLATUM,WHITE 28 GM JELLY TP PRN (07:45)
[2023-07-16] MEDS ORDERED: ACETAMINOPHEN 325 MG TABLET PO PRN (07:45)
[2023-07-16] MEDS ORDERED: IBUPROFEN 600 MG TABLET PO PRN (07:45)
[2023-07-16] MEDS ORDERED: MAG HYDROX/ALUMINUM HYD/SIMETH ES 30 ML SUSPENSION UDCUP PO PRN (07:45)
[2023-07-16] MEDS ORDERED: CloNIDine HCL 0.1 MG TABLET PO PRN (07:45)
[2023-07-16] MEDS ORDERED: BENZOCAINE/MENTHOL LOZENGE PO PRN (07:45)
[2023-07-16] MEDS ORDERED: LOPERAMIDE HCL 2 MG CAPSULE PO PRN (07:45)
[2023-07-16] MEDS ORDERED: ALBUTEROL SULFATE HFA 90 MCG/PUFF 8 GM INHALER IH PRN (07:45)
[2023-07-16] MEDS ORDERED: ONDANSETRON HCL 4 MG TABLET PO PRN (07:45)
[2023-07-16] MEDS ORDERED: INSULIN LISPRO 100 UNITS/ML SQ PRN (07:45)
[2023-07-16] MEDS ORDERED: BACITRACIN 28 GM OINTMENT TP PRN (07:45)
[2023-07-16] MEDS ORDERED: OMEPRAZOLE 20 MG CAPSULE PO PRN (07:45)
[2023-07-16] MEDS ORDERED: GLUCAGON,HUMAN RECOMBINANT 1 MG VIAL IM PRN (07:45)
[2023-07-16 08:10] VITALS: BP 129/65; PULSE 83; RESP 18; TEMP 97.1
[2023-07-16 12:16] LABS: GLUCOMETER DEV NAME(LOC) BV3N.; GLUCOSE,POINT OF CARE > 600 MG/DL (70-110)
[2023-07-16] MEDS ORDERED: INSULIN LISPRO 100 UNITS/ML SQ ONE ×2 (12:30→13:30)
[2023-07-16 13:47] LABS: GLUCOMETER DEV NAME(LOC) BV3N.; GLUCOSE,POINT OF CARE 569 MG/DL (70-110)
[2023-07-16] MEDS: LITHIUM CARBONATE 300 MG CAPSULE PO SCH (16:09)
[2023-07-16] MEDS: RisperiDONE 2 MG TABLET PO SCH (16:09)
[2023-07-16] MEDS: DIVALPROEX SODIUM 500 MG ER TABLET PO SCH (16:09)
[2023-07-16 17:01] LABS: GLUCOMETER DEV NAME(LOC) BV3N.; GLUCOSE,POINT OF CARE 131 MG/DL (70-110)
[2023-07-16] MEDS: INSULIN LISPRO 100 UNITS/ML SQ PRN (17:07)
[2023-07-16] MEDS: INSULIN GLARGINE,HUM.REC.ANLOG 100 UNITS/ML SQ SCH (20:56)
[2023-07-16 21:01] LABS: GLUCOMETER DEV NAME(LOC) BV3N.; GLUCOSE,POINT OF CARE 261 MG/DL (70-110)
[2023-07-17] MEDS: ZOLPIDEM TARTRATE 10 MG TABLET PO PRN (01:25)
[2023-07-17] MEDS: LORazepam 2 MG TABLET PO PRN ×2 (01:26→08:29)
[2023-07-17 05:00] VITALS: RESP 18
[2023-07-17 06:46] LABS: GLUCOMETER DEV NAME(LOC) BV3N.; GLUCOSE,POINT OF CARE 282 MG/DL (70-110)
[2023-07-17] MEDS: INSULIN LISPRO 100 UNITS/ML SQ PRN ×3 (07:03→21:17)
[2023-07-17] MEDS: RisperiDONE 2 MG TABLET PO SCH ×2 (08:24→17:28)
[2023-07-17] MEDS: LITHIUM CARBONATE 300 MG CAPSULE PO SCH ×2 (08:24→17:28)
[2023-07-17] MEDS: DIVALPROEX SODIUM 500 MG ER TABLET PO SCH ×2 (08:24→17:28)
[2023-07-17] MEDS: INSULIN GLARGINE,HUM.REC.ANLOG 100 UNITS/ML SQ SCH ×2 (08:29→21:17)
[2023-07-17] MEDS: HALOPERIDOL 5 MG TABLET PO PRN (08:29)
[2023-07-17 08:40] LABS: HEMOGLOBIN A1C 8.5 % (3.8-5.6)
[2023-07-17 09:29] VITALS: BP 126/61; PULSE 83; RESP 18; TEMP 98; O2SAT 97
[2023-07-17 11:22] LABS: GLUCOMETER DEV NAME(LOC) BV3N.; GLUCOSE,POINT OF CARE 179 MG/DL (70-110)
[2023-07-17 18:01] LABS: GLUCOMETER DEV NAME(LOC) BV3N.; GLUCOSE,POINT OF CARE 119 MG/DL (70-110)
[2023-07-17 21:26] LABS: GLUCOMETER DEV NAME(LOC) BV3N.; GLUCOSE,POINT OF CARE 194 MG/DL (70-110)
[2023-07-18 01:25] VITALS: BP 101/68; PULSE 18; PULSE 88; RESP 18; TEMP 97.4; O2SAT 98
[2023-07-18 05:41] LABS: GLUCOMETER DEV NAME(LOC) BV3N.; GLUCOSE,POINT OF CARE 250 MG/DL (70-110)
[2023-07-18] MEDS: INSULIN LISPRO 100 UNITS/ML SQ PRN ×4 (06:24→21:07)
[2023-07-18 08:00] VITALS: BP 128/97; PULSE 87; RESP 18; TEMP 97.8; O2SAT 100
[2023-07-18] MEDS: DIVALPROEX SODIUM 500 MG ER TABLET PO SCH ×2 (08:21→16:42)
[2023-07-18] MEDS: RisperiDONE 2 MG TABLET PO SCH ×2 (08:21→16:40)
[2023-07-18] MEDS: LITHIUM CARBONATE 300 MG CAPSULE PO SCH ×2 (08:21→16:40)
[2023-07-18] MEDS: INSULIN GLARGINE,HUM.REC.ANLOG 100 UNITS/ML SQ SCH ×2 (08:27→21:07)
[2023-07-18] MEDS: LORazepam 2 MG TABLET PO PRN ×2 (08:28→16:40)
[2023-07-18] MEDS ORDERED: LORazepam 2 MG/ML VIAL IM ONE (09:15)
[2023-07-18] MEDS ORDERED: HALOPERIDOL LACTATE 5 MG/ML VIAL IM ONE (09:15)
[2023-07-18] MEDS ORDERED: DiphenhydrAMINE HCL 50 MG/ML VIAL IM ONE (09:15)
[2023-07-18 09:43] VITALS: RESP 18
[2023-07-18 10:43] VITALS: RESP 18
[2023-07-18 12:26] LABS: GLUCOMETER DEV NAME(LOC) BV3N.; GLUCOSE,POINT OF CARE 175 MG/DL (70-110)
[2023-07-18] MEDS: HALOPERIDOL 5 MG TABLET PO PRN (16:40)
[2023-07-18 17:31] LABS: GLUCOMETER DEV NAME(LOC) BV3N.; GLUCOSE,POINT OF CARE 317 MG/DL (70-110)
[2023-07-18 20:29] VITALS: BP 120/73; PULSE 86; RESP 20; TEMP 98; O2SAT 100
[2023-07-18] MEDS: ZOLPIDEM TARTRATE 10 MG TABLET PO PRN (21:01)
[2023-07-18 21:26] LABS: GLUCOMETER DEV NAME(LOC) BV3N.; GLUCOSE,POINT OF CARE 185 MG/DL (70-110)
[2023-07-19] MEDS: INSULIN LISPRO 100 UNITS/ML SQ PRN (06:14)
[2023-07-19 06:27] LABS: GLUCOMETER DEV NAME(LOC) BV3N.; GLUCOSE,POINT OF CARE 373 MG/DL (70-110)
[2023-07-19 08:07] VITALS: BP 117/72; PULSE 80; RESP 18; TEMP 98; O2SAT 95
[2023-07-19] MEDS: DIVALPROEX SODIUM 500 MG ER TABLET PO SCH (08:19)
[2023-07-19] MEDS: RisperiDONE 2 MG TABLET PO SCH (08:19)
[2023-07-19] MEDS: LITHIUM CARBONATE 300 MG CAPSULE PO SCH (08:19)
[2023-07-19] MEDS: INSULIN GLARGINE,HUM.REC.ANLOG 100 UNITS/ML SQ SCH (08:25)
[2023-07-19] MEDS ORDERED: RISP2TAB86 PO (11:32)
[2023-07-19] MEDS ORDERED: DIVA500T53 PO (11:35)
== END 2023-07-19 14:00 | disposition home or self-care (01) | DRG 750 ==
LOC: EMS 21:36 → B3A 07-16 00:06
PROVIDERS: ADMIT Psychiatry & Neurology Psychiatry; ATTEND Psychiatry & Neurology Psychiatry
DX: F25.9 Schizoaffective disorder, unspecified (principal); R45.851 Suicidal ideations; E11.9 Type 2 diabetes mellitus without complications; F32.A Depression, unspecified; F10.129 Alcohol abuse with intoxication, unspecified; Y90.9 Presence of alcohol in blood, level not specified; F12.10 Cannabis abuse, uncomplicated; M85.80 Other specified disorders of bone density and structure, unspecified site; Z20.822 Contact with and (suspected) exposure to COVID-19; G47.00 Insomnia, unspecified; I10 Essential (primary) hypertension; F41.9 Anxiety disorder, unspecified; K59.00 Constipation, unspecified; Z87.891 Personal history of nicotine dependence
CPT/HCPCS: 80053; 80164; 80307; 82962; 83036; 85025; 99285; G0480; J1200; J1630; J1815; J2060

== ENCOUNTER 2023-07-21 20:35 | Emergency (ER) | payer MEDICAID ==
[~2023-07-21] VITALS: Ht 172.7 cm; Wt 90.9 kg
[~2023-07-21 20:35] MED LIST changes: -DIVA-112 PO; +DIVA500T53 PO; -INSLAN SQ; -INSU100C14 SQ; +RISP2TAB86 PO; -RISP3TAB35 PO
[2023-07-21 21:00] VITALS: TEMP 98.5
[2023-07-21 21:16] LABS: GLUCOMETER DEV NAME(LOC) ER.6; GLUCOSE,POINT OF CARE 331 MG/DL (70-110)
[2023-07-21] MEDS ORDERED: LORazepam 1 MG TABLET PO ONE (23:00)
[2023-07-22 00:02] VITALS: BP 136/86; PULSE 87; RESP 18
== END 2023-07-22 00:05 | disposition home or self-care (01) ==
LOC: EMS 20:36
DX: F41.9 Anxiety disorder, unspecified (principal); E11.9 Type 2 diabetes mellitus without complications; F32.A Depression, unspecified; F20.9 Schizophrenia, unspecified; F17.210 Nicotine dependence, cigarettes, uncomplicated; F12.90 Cannabis use, unspecified, uncomplicated
CPT/HCPCS: 82962; 99283